=== PATIENT | female | born 1935 | race Caucasian/White ===

== ENCOUNTER 2018-03-08 09:30 | Day surgery (SDC) | payer MEDICARE, BC ==
[~2018-03-08 09:30] MED LIST: FENTANYL 100MCG/2ML SOL ONE; MIDAZOLAM 2 MG/2 ML SOL ONE
[2018-03-08] MEDS ORDERED: ACETAZOLAMIDE 250 MG PO ONE (09:35)
[2018-03-08] MEDS: KETOROLAC 0.5% OPTH 60 DROP SOL ONE ×2 (09:48→10:03)
[2018-03-08] MEDS: TETRACAINE HCL 0.5 % 1 DROP SOL ONE ×3 (09:48→10:46)
[2018-03-08] MEDS: PHENYLEPHRINE HCL 10% OPHTHAL SOL ONE ×2 (09:48→10:03)
[2018-03-08] MEDS: CYCLOPENTOLATE 1% SOL ONE ×2 (09:48→10:03)
[2018-03-08] MEDS ORDERED: IMPRIMIS ONE (10:37)
[2018-03-08] MEDS ORDERED: POVIDONE IODINE 5% SOL ONE (10:38)
[2018-03-08] MEDS ORDERED: BSS 500 ML 500 ML IR ONE (10:38)
[2018-03-08] MEDS ORDERED: LIDOCAINE HCL 1% MPF 30 SOL ONE (10:38)
[2018-03-08 11:12] VITALS: TEMP 96.7; O2SAT 98
[2018-03-08 11:24] VITALS: BP 161/61; PULSE 53; RESP 20
== END 2018-03-08 11:35 | disposition home or self-care (01) | DRG 125 ==
LOC: SURG 09:30
PROVIDERS: ATTEND Ophthalmology
DX: H25.89 Other age-related cataract (principal)
CPT/HCPCS: J2250; J3010; A9270-GY; J2001